=== PATIENT | female | born 1945 | race Caucasian/White ===

== ENCOUNTER 2017-05-11 23:03 | Day surgery (SDC) | payer BC ==
--- NOTE | 2017-05-11 23:06 | EDM.PDOC ---
ED HPI GENERAL MEDICAL PROBLEM - General Stated Complaint: PAIN RT SHOULDER Time Seen by Provider: 05/11/17 23:05 Source of Information: Reports: Patient - History of Present Illness INITIAL COMMENTS - FREE TEXT/NARRATIVE: HISTORY AND PHYSICAL: History of present illness: Right shoulder pain after fall 6 out of 10 nonradiating patient fell down stairs feet fist approx 6 steps, denies head injury or LOC no f/n/v/c/s/cp/sob/allred/d/palp DM /htn Review of systems: As per history of present illness and below otherwise all systems reviewed and negative. Past medical history: As per history of present illness and as reviewed below otherwise noncontributory. Surgical history: As per history of present illness and as reviewed below otherwise noncontributory. Social history: No reported history of drug or alcohol abuse. Family history: As per history of present illness and as reviewed below otherwise noncontributory. Physical exam: HEENT: Atraumatic, normocephalic, pupils reactive, negative for conjunctival pallor or scleral icterus, mucous membranes moist, throat clear, neck supple, nontender, trachea midline. Lungs: Clear to auscultation, breath sounds equal bilaterally, chest nontender. Heart: S1S2, regular, negative for clicks, rubs, or JVD. Abdomen: Soft, nondistended, nontender. Negative for masses or hepatosplenomegaly. Negative for costovertebral tenderness. Pelvis: Stable nontender. Genitourinary: Deferred. Rectal: Deferred. Extremities: Atraumatic, negative for cords or calf pain. Neurovascular unremarkable. Neuro: Awake, alert, oriented. Cranial nerves II through XII unremarkable. Cerebellum unremarkable. Motor and sensory unremarkable throughout. Exam nonfocal. Diagnostics: []Shoulder 3 views chest 1 v lab as below ekg Therapeutics: []ms 2 mg IV Impression: []Right shoulder pain comminuted /impacted Fx right humoral head with dislocation further management per dr cori mohr Definitive disposition and diagnosis as appropriate pending reevaluation and review of above. Right Shoulder Pain Score (Numeric/FACES): 8 - Related Data Allergies Allergy/AdvReac Type Severity Reaction Status Date / Time No Known Allergies Allergy Verified 05/11/17 23:11 Home Meds: Home Meds Aspirin 81 mg PO BRK 05/12/17 [History] Levothyroxine Sodium [Synthroid] 0 mcg PO 05/12/17 [History] Ramipril [Altace] 0 mg PO DAILY 05/12/17 [History] SitaGLIPtin [Januvia] 0 mg PO 05/12/17 [History] Venlafaxine [Effexor] 0 mg PO 05/12/17 [History] metFORMIN HCl [Metformin HCl] 0 mg PO 05/12/17 [History] ED ROS GENERAL - Review of Systems Review Of Systems: ROS reveals no pertinent complaints other than HPI. ED EXAM, GENERAL - Physical Exam Exam: See Below Course - Vital Signs Last Recorded V/S: Last Vital Signs Temp 36.2 C 05/11/17 23:11 Pulse 78 05/11/17 23:11 Resp 20 05/11/17 23:11 BP 137/65 05/11/17 23:11 Pulse Ox 95 05/11/17 23:11 - Orders/Labs/Meds Orders: Active Orders 24 hr Category Date Time Status EKG Documentation Completion [RC] STAT Care 05/12/17 00:05 Ordered Chest 1V Frontal [CR] Stat Exams 05/12/17 00:05 Ordered Shoulder Comp Rt [CR] Stat Exams 05/11/17 23:05 Taken CBC WITH AUTO DIFF [HEME] Stat Lab 05/12/17 00:03 Ordered COMPREHENSIVE METABOLIC PN,CMP [CHEM] Stat Lab 05/12/17 00:03 Ordered INR,PT,PROTHROMBIN TIME [COAG] Stat Lab 05/12/17 00:03 Ordered UA W/MICROSCOPIC [URIN] Stat Lab 05/12/17 00:03 Uncollected Meds: Medications Discontinued Medications Generic Name Dose Route Start Last Admin Trade Name Esther PRN Reason Stop Dose Admin Morphine Sulfate 2 mg 05/11/17 23:55 Morphine IV 05/11/17 23:56 ONETIME ONE Departure - Departure Time of Disposition: 00:12 Disposition: Still A Patient 30 Condition: Fair Clinical Impression: Fracture, Shoulder dislocation - Discharge Information - My Orders Last 24 Hours: My Active Orders 05/11/17 23:05 Shoulder Comp Rt [CR] Stat 05/12/17 00:03 CBC WITH AUTO DIFF [HEME] Stat COMPREHENSIVE METABOLIC PN,CMP [CHEM] Stat INR,PT,PROTHROMBIN TIME [COAG] Stat UA W/MICROSCOPIC [URIN] Stat 05/12/17 00:05 EKG Documentation Completion [RC] STAT Chest 1V Frontal [CR] Stat - Assessment/Plan Last 24 Hours: My Active Orders 05/11/17 23:05 Shoulder Comp Rt [CR] Stat 05/12/17 00:03 CBC WITH AUTO DIFF [HEME] Stat COMPREHENSIVE METABOLIC PN,CMP [CHEM] Stat INR,PT,PROTHROMBIN TIME [COAG] Stat UA W/MICROSCOPIC [URIN] Stat 05/12/17 00:05 EKG Documentation Completion [RC] STAT Chest 1V Frontal [CR] Stat
[2017-05-11] MEDS ORDERED: Morphine 10 MG/ML Syringe IV ONE (23:55)
[2017-05-12] MEDS ORDERED: Ondansetron 4 MG/2 ML SDV ONE (00:17)
[2017-05-12] MEDS ORDERED: Ondansetron 4 MG/2 ML SDV IVPUSH ONE (00:17)
--- NOTE | 2017-05-12 00:41 | PCM.HP ---
H&P History of Present Illness - General Date of Service: 05/12/17 Source of Information: Patient, Family History Limitations: Reports: No Limitations - History of Present Illness Initial Comments - Free Text/Narative: 72 y/o RHD female who fell down some stairs earlier tonight. Complains of pain in R shoulder. Denies other injury or LOC. No previous h/o R shoulder pain. Denies distal paralysis or paresthesias. Has a h/o previous L reverse TSA. Onset of Symptoms: Reports: Today Duration of Symptoms: Reports: Constant Location: Reports: Upper Extremity, Right Quality: Reports: Pressure, Sharp Severity: Moderate Improves with: Reports: Immobilization Worsens with: Reports: Movement Context: Reports: Trauma Associated Symptoms: Reports: No Other Symptoms Right Shoulder Pain Score (Numeric/FACES): 10 - Related Data Allergies/Adverse Reactions: Allergies Allergy/AdvReac Type Severity Reaction Status Date / Time No Known Allergies Allergy Verified 05/11/17 23:11 Home Medications: Home Meds Aspirin 81 mg PO BRK 05/12/17 [History] Levothyroxine Sodium [Synthroid] 0 mcg PO 05/12/17 [History] Ramipril [Altace] 0 mg PO DAILY 05/12/17 [History] SitaGLIPtin [Januvia] 0 mg PO 05/12/17 [History] Venlafaxine [Effexor] 0 mg PO 05/12/17 [History] metFORMIN HCl [Metformin HCl] 0 mg PO 05/12/17 [History] Past Medical History HEENT History: Reports: Impaired Vision 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 History: Reports: COPD 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: Psychiatric History: Reports: Depression Endocrine/Metabolic History: Reports: Diabetes, Type II, Hyperthyroidism - Infectious Disease History Infectious Disease History: Reports: Chicken Pox - Past Surgical History HEENT Surgical History: Reports: Tonsillectomy Female Surgical History: Reports: Hysterectomy Endocrine Surgical History: Reports: Thyroidectomy Musculoskeletal Surgical History: Reports: Knee Replacement, Shoulder Surgery Social & Family History - Family History Endocrine/Metabolic: Reports: Diabetes, type II Oncologic: Reports: Prostate - Tobacco Use Smoking Status *Q: Former Smoker Tobacco Use Within Last Twelve Months: Other (See Below) (chews nicorette gum x 7 years) Used Tobacco, but Quit: Yes Month Tobacco Last Used: quit several mos ago - Caffeine Use Caffeine Use: Reports: Coffee - Recreational Drug Use Recreational Drug Use: No H&P Review of Systems - Review of Systems: Review Of Systems: See Below General: Reports: No Symptoms HEENT: Reports: No Symptoms Pulmonary: Reports: No Symptoms Cardiovascular: Reports: No Symptoms Gastrointestinal: Reports: No Symptoms Genitourinary: Reports: No Symptoms Musculoskeletal: Reports: Joint Pain Skin: Reports: No Symptoms Psychiatric: Reports: No Symptoms Neurological: Reports: No Symptoms Hematologic/Lymphatic: Reports: No Symptoms Immunologic: Reports: No Symptoms Exam - Exam Exam: See Below - Vital Signs Vital Signs: Last Vital Signs Temp 97.5 F 05/12/17 00:32 Pulse 80 05/12/17 00:32 Resp 18 05/12/17 00:32 BP 136/63 05/12/17 00:32 Pulse Ox 94 L 05/12/17 00:32 Weight: 117.934 kg - Exam General: Alert, Oriented, 4 HEENT: Conjunctiva Clear, Hearing Intact, Nares Patent, Pupils Reactive Neck: Supple, Trachea Midline, 2 Lungs: Normal Respiratory Effort Cardiovascular: Regular Rate Abdomen: Soft (Female) Exam: Deferred Rectal (Female) Exam: Deferred Psychiatric: Alert, Normal Affect, Normal Mood Physical Exam Comments:: Exam of RUE shows no obvious deformity other than mild loss of deltoid contour. TTP over proximal humerus. No TTP over elbow/wrist. AIN/PIN/uln/deltoid motor intact. Rad/uln/med/deltoid sensation intact. Rad pulse 2 +. - Patient Data Imaging Impressions Last 24 hrs: XR R shoulder shows R shoulder anterior fracture dislocation. *Q Meaningful Use (ADM) - VTE *Q VTE Criteria *Q: - Stroke *Q Stroke Criteria *Q: - AMI *Q AMI Criteria *Q: - Problem List (1) Fracture of proximal end of right humerus SNOMED Code(s): 384490692 ICD Code: S42.201A - UNSP FRACTURE OF UPPER END OF RIGHT HUMERUS, INIT Status: Acute Current Visit: Yes Qualifiers: Encounter type: initial encounter Fracture type: closed Fracture alignment: displaced (2) Shoulder dislocation SNOMED Code(s): 524397101 ICD Code: S43.006A - UNSP DISLOCATION OF UNSPECIFIED SHOULDER JOINT, INIT ENCNTR Status: Acute Current Visit: Yes Qualifiers: Encounter type: initial encounter Laterality: right Qualified Code(s): S43.004A - Unspecified dislocation of right shoulder joint, initial encounter Problem List Initiated/Reviewed/Updated: Yes Orders Last 24hrs: Active Orders 24 hr Category Date Time Status EKG Documentation Completion [RC] STAT Care 05/12/17 00:05 Active Chest 1V Frontal [CR] Stat Exams 05/12/17 00:05 Ordered Shoulder Comp Rt [CR] Stat Exams 05/11/17 23:05 Taken CBC WITH AUTO DIFF [HEME] Stat Lab 05/12/17 00:05 Received COMPREHENSIVE METABOLIC PN,CMP [CHEM] Stat Lab 05/12/17 00:05 Received INR,PT,PROTHROMBIN TIME [COAG] Stat Lab 05/12/17 00:05 Received UA W/MICROSCOPIC [URIN] Stat Lab 05/12/17 00:03 Uncollected Assessment/Plan Comment:: 1. sling prn for comfort 2. morphine given for pain management 3. recommend CR of R shoulder fx/jennifer--Risks of procedure d/w patient which include, but are not limited to, n/v injury, fracture displacement, need for further surgery, AVN, and anesthetic complications. Patient agrees to proceed. 4. D/w patient that she may need further open treatment of her fracture, depending on how alignment is after reduction. We will plan on discussing this more tomorrow after the reduction. 5. Will admit overnight for pain management and n/v observation
--- NOTE | 2017-05-12 00:48 | PCM.OPNOTE ---
- General Post-Op/Procedure Note Date of Surgery/Procedure: 05/12/17 Operative Procedure(s): CR R shoulder fracture/dislocation Post-Op Diagnosis: R shoulder dislocation. R proximal humerus fracture, displaced Anesthesia Technique: General ET tube Primary Surgeon: Anne Marie VERA in mLs: 0 Condition: Good Free Text/Narrative:: #[id number]
[2017-05-12 00:49] LABS: CHLORIDE,CL 103 mmol/L (98-110); SODIUM,NA 139 mmol/L (136-146)
[2017-05-12] MEDS ORDERED: Rocuronium 10 MG/ML 10 ML Syringe ONE (00:51)
[2017-05-12] MEDS ORDERED: Succinylcholine/Normal Saline 200 MG/10 ML Syringe ONE (00:51)
[2017-05-12] MEDS ORDERED: Ondansetron 4 MG/2 ML SDV IVPUSH PRN (00:51)
[2017-05-12] MEDS ORDERED: Propofol 200 MG/20 ML SDV ONE (00:52)
[2017-05-12] MEDS ORDERED: fentaNYL 100 MCG/2 ML SDV ONE ×2 (00:52→01:30)
[2017-05-12] MEDS ORDERED: Midazolam 1 MG/ML 2 ML SDV ONE (00:52)
--- NOTE | 2017-05-12 01:38 | PCM.PREANE ---
Preanesthetic Assessment - Anesthesia/Transfusion/Family Hx Anesthesia History: Prior Anesthesia Without Reaction Family History of Anesthesia Reaction: No - Review of Systems Other: Reports: None - Physical Assessment NPO Status Date: 05/11/17 NPO Status Time: 20:00 O2 Sat by Pulse Oximetry: 94 Respiratory Rate: 18 Vital Signs: Last Vital Signs Temp 36.4 C 05/12/17 00:32 Pulse 80 05/12/17 00:32 Resp 18 05/12/17 00:32 BP 136/63 05/12/17 00:32 Pulse Ox 94 L 05/12/17 00:32 Height: 5 ft 9 in Weight: 117.934 kg ASA Class: 3E Mental Status: Alert & Oriented x3 Airway Class: Mallampati = 2 Dentition: Reports: Normal Dentition Thyro-Mental Finger Breadths: 3 Mouth Opening Finger Breadths: 3 ROM/Head Extension: Full - Lab Values: Laboratory Last Values WBC 19.43 K/uL (4.0-11.0) H 05/12/17 00:05 RBC 4.37 M/uL (4.30-5.90) 05/12/17 00:05 Hgb 12.5 g/dL (12.0-16.0) 05/12/17 00:05 Hct 38.8 % (36.0-46.0) 05/12/17 00:05 MCV 88.8 fL (80.0-98.0) 05/12/17 00:05 MCH 28.6 pg (27.0-32.0) 05/12/17 00:05 MCHC 32.2 g/dL (31.0-37.0) 05/12/17 00:05 RDW Std Deviation 51.9 fl (28.0-62.0) 05/12/17 00:05 RDW Coeff of [place] 16 % (11.0-15.0) H 05/12/17 00:05 Plt Count 418 K/uL (150-400) H 05/12/17 00:05 MPV 9.30 fL (7.40-12.00) 05/12/17 00:05 Add Manual Diff YES 05/12/17 00:05 Neutrophils % (Manual) 74 % (48.0-80.0) 05/12/17 00:05 Band Neutrophils % 6 % 05/12/17 00:05 Lymphocytes % (Manual) 12 % (16.0-40.0) L 05/12/17 00:05 Monocytes % (Manual) 7 % (0.0-15.0) 05/12/17 00:05 Basophils % (Manual) 1 % (0.0-1.5) 05/12/17 00:05 Nucleated RBC % 0.0 /100WBC 05/12/17 00:05 Absolute Seg Neuts 14.4 05/12/17 00:05 Band Neutrophils # 1.2 05/12/17 00:05 Lymphocytes # (Manual) 2.3 05/12/17 00:05 Monocytes # (Manual) 1.4 05/12/17 00:05 Basophils # (Manual) 0 05/12/17 00:05 Nucleated RBCs # 0 K/uL 05/12/17 00:05 INR 0.97 (0.86-1.11) 05/12/17 00:05 Sodium 139 mmol/L (136-146) 05/12/17 00:05 Potassium 4.1 mmol/L (3.5-5.1) 05/12/17 00:05 Chloride 103 mmol/L (98-110) 05/12/17 00:05 Carbon Dioxide 20 mmol/L (21-31) L 05/12/17 00:05 BUN 18 mg/dL (6.0-23.0) 05/12/17 00:05 Creatinine 0.9 mg/dL (0.6-1.5) 05/12/17 00:05 Est Cr Clr Drug Dosing 60.79 mL/min 05/12/17 00:05 Estimated GFR (MDRD) > 60.0 ml/min 05/12/17 00:05 Glucose 233 mg/dL (60-110) H 05/12/17 00:05 Calcium 9.5 mg/dL (8.8-10.8) 05/12/17 00:05 Total Bilirubin 0.3 mg/dL (0.1-1.5) 05/12/17 00:05 AST 49 IU/L (5-40) H 05/12/17 00:05 ALT 41 IU/L (8-54) 05/12/17 00:05 Alkaline Phosphatase 91 (40-150) 05/12/17 00:05 Total Protein 7.2 g/dL (6.0-8.0) 05/12/17 00:05 Albumin 3.8 g/dL (3.4-4.8) 05/12/17 00:05 Globulin 3.4 g/dL (2.0-3.5) 05/12/17 00:05 Albumin/Globulin Ratio 1.1 (1.3-2.8) L 05/12/17 00:05 Urine Color YELLOW 05/12/17 01:11 Urine Appearance SLT CLOUDY 05/12/17 01:11 Urine pH 6.0 (5.0-8.0) 05/12/17 01:11 Ur Specific [place] >= 1.030 (1.001-1.035) 05/12/17 01:11 Urine Protein 30 mg/dL (NEGATIVE) 05/12/17 01:11 Urine Glucose (UA) NEGATIVE mg/dL (NEGATIVE) 05/12/17 01:11 Urine Ketones TRACE mg/dL (NEGATIVE) H 05/12/17 01:11 Urine Occult Blood SMALL (NEGATIVE) H 05/12/17 01:11 Urine Nitrite POSITIVE (NEGATIVE) H 05/12/17 01:11 Urine Bilirubin NEGATIVE (NEGATIVE) 05/12/17 01:11 Urine Urobilinogen 0.2 EU/dL (<2.0) 05/12/17 01:11 Ur Leukocyte Esterase SMALL (NEGATIVE) 05/12/17 01:11 Urine RBC 0-2 (0-2/HPF) 05/12/17 01:11 Urine WBC 50-60 (0-5/HPF) 05/12/17 01:11 Ur Epithelial Cells FEW (NONE-FEW) 05/12/17 01:11 Urine Bacteria 2+ (NEGATIVE) H 05/12/17 01:11 - Allergies Allergies/Adverse Reactions: Allergies Allergy/AdvReac Type Severity Reaction Status Date / Time No Known Allergies Allergy Verified 05/11/17 23:11 - Acknowledgements Anesthesia Type Planned: General Anesthesia Pt an Appropriate Candidate for the Planned Anesthesia: Yes Alternatives and Risks of Anesthesia Discussed w Pt/Guardian: Yes Pt/Guardian Understands and Agrees with Anesthesia Plan: Yes PreAnesthesia Questionnaire HEENT History: Reports: Impaired Vision Cardiovascular History: Reports: Hypertension 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: Psychiatric History: Reports: Depression Endocrine/Metabolic History: Reports: Diabetes, Type II, Hyperthyroidism - Infectious Disease History Infectious Disease History: Reports: Chicken Pox - Past Surgical History HEENT Surgical History: Reports: Oral Surgery, Tonsillectomy Female Surgical History: Reports: Section, Hysterectomy Endocrine Surgical History: Reports: Thyroidectomy Musculoskeletal Surgical History: Reports: Knee Replacement, Shoulder Surgery - SUBSTANCE USE Smoking Status *Q: Former Smoker Tobacco Use Within Last Twelve Months: Other (See Below) (chews nicorette gum x 7 years) Recreational Drug Use History: No - HOME MEDS Home Medications: Home Meds Aspirin 81 mg PO BRK 05/12/17 [History] Levothyroxine Sodium [Synthroid] 0 mcg PO 05/12/17 [History] Ramipril [Altace] 0 mg PO DAILY 05/12/17 [History] SitaGLIPtin [Januvia] 0 mg PO 05/12/17 [History] Venlafaxine [Effexor] 0 mg PO 05/12/17 [History] metFORMIN HCl [Metformin HCl] 0 mg PO 05/12/17 [History] - CURRENT (IN HOUSE) MEDS Current Meds: Current Medications Hydrocodone Bitart/Acetaminophen ([place] 325-5 Mg) 1 - 2 tab PO Q4H PRN PRN Reason: Pain Aspirin (Aspirin) 81 mg PO BRK EVITA Lactated Ringer's (Ringers, Lactated) 1,000 mls @ 125 mls/hr IV ASDIRECTED EVITA Morphine Sulfate (Morphine) 1 - 3 mg IVPUSH Q3H PRN PRN Reason: Pain Ondansetron HCl (Zofran) 4 mg IVPUSH Q6HR PRN PRN Reason: NAUSEA/VOMITING Discontinued Medications Fentanyl (Sublimaze) Confirm Administered Dose 100 mcg .ROUTE .STK-MED ONE Stop: 05/12/17 00:53 Fentanyl (Sublimaze) Confirm Administered Dose 100 mcg .ROUTE .STK-MED ONE Stop: 05/12/17 01:31 Midazolam HCl (Versed 1 Mg/Ml) Confirm Administered Dose 2 mg .ROUTE .STK-MED ONE Stop: 05/12/17 00:53 Morphine Sulfate (Morphine) 2 mg IV ONETIME ONE Stop: 05/11/17 23:56 Last Admin: 05/12/17 00:24 Dose: 2 mg Ondansetron HCl (Zofran) 8 mg IVPUSH ONETIME ONE Stop: 05/12/17 00:18 Last Admin: 05/12/17 00:22 Dose: 8 mg Ondansetron HCl (Zofran) Confirm Administered Dose 4 mg .ROUTE .STK-MED ONE Stop: 05/12/17 00:18 Last Admin: 05/12/17 00:24 Dose: Not Given Propofol (Diprivan 20 Ml) Confirm Administered Dose 200 mg .ROUTE .STK-MED ONE Stop: 05/12/17 00:53 Rocuronium [place] (Zemuron) Confirm Administered Dose 100 mg .ROUTE .STK-MED ONE Stop: 05/12/17 00:52 Succinylcholine Chloride (Succinylcholine In Ns Pf) Confirm Administered Dose 200 mg .ROUTE .STK-MED ONE Stop: 05/12/17 00:52
[2017-05-12] MEDS ORDERED: fentaNYL 100 MCG/2 ML SDV IVPUSH PRN (02:26)
--- NOTE | 2017-05-12 02:37 | PCM.POSTAN ---
POST ANESTHESIA ASSESSMENT - MENTAL STATUS Mental Status: alert, oriented - RESPIRATORY Respiratory Status: respiratory rate WNL, airway patent, O2 saturation stable, supplemental oxygen - CARDIOVASCULAR CV Status: pulse rate WNL, blood pressure stable - GASTROINTESTINAL GI Status: no symptoms - PAIN Pain Score: 4 - POST OP HYDRATION Hydration Status: adequate & stable
[2017-05-12] MEDS: Lactated Ringers 1,000 ML IV SCH ×2 (03:09→11:48)
--- NOTE | 2017-05-12 03:13 | OR ---
SURGEON: Anne Marie Amin MD DATE OF PROCEDURE: 05/12/2017 PREOPERATIVE DIAGNOSIS: Right shoulder fracture/dislocation. POSTOPERATIVE DIAGNOSIS: Right shoulder fracture/dislocation. PROCEDURE: Closed reduction, right shoulder fracture/dislocation. . VETERINARY DENTIST: None. ANESTHESIA: General. ESTIMATED BLOOD LOSS: 0 mL. TOURNIQUET TIME: 0 minutes. COMPLICATIONS: None. DVT PROPHYLAXIS: Not indicated. IMPLANTS USED: None. BRIEF HISTORY: Litzy is a 72-year-old [id number] female who sustained a fall down some steps earlier this evening. She complained of an immediate pain in her right shoulder. She was seen in the emergency room. She was found to have a comminuted fracture of the proximal humerus along with a dislocation of the right glenohumeral joint. At that time, I recommended closed reduction. The risks and goals of procedure were discussed with the patient and were documented preoperatively. She agreed to proceed. DESCRIPTION OF PROCEDURE: The patient was properly identified and brought to the operating room. She was kept on the operating room cart. General anesthesia was administered. After adequate anesthesia was obtained, a time-out was performed to ensure correct site and procedure. Preoperative antibiotics were not given. The surgical site had been marked preoperatively. A sheet was placed around the torso to provide countertraction. The patient's arm and upper extremity was quite large and it was difficult to palpate her bony structures. Axial traction was placed and I attempted a closed reduction. Initial x-rays obtained showed there to be considerable comminution of the humeral head. The axillary view showed the humeral head to be in place along the glenoid, however, there was quite a bit of rotation of the AP view. The shoulder again repositioned with gentle traction and a new x-ray with the arm kept in neutral position was obtained. This showed reduction of the fracture in the AP plane. The patient was then placed in a shoulder immobilizer. She was awakened from her anesthetic and transferred back to the operating room cart. The patient tolerated the procedure well. Postoperatively, we will plan on obtaining a CT scan of the right shoulder to evaluate the fracture fragments. She will continue with the shoulder immobilizer. AUBREY / ARABELLA /[id number]
[2017-05-12] MEDS: Morphine 4 MG/ML Syringe IVPUSH PRN ×3 (03:22→11:46)
[2017-05-12] MEDS: Aspirin 81 MG Tab.Chew PO SCH ×2 (03:23→08:58)
[2017-05-12] MEDS: Acetaminophen/HYDROcodone 325-5 MG Tab PO PRN ×3 (04:30→13:25)
[2017-05-12] MEDS ORDERED: metFORMIN 500 MG Tab PO SCH (09:00)
[2017-05-12] MEDS ORDERED: Venlafaxine 75 MG Cap.ER PO SCH (09:00)
[2017-05-12] MEDS ORDERED: Levofloxacin 500 MG Tab PO SCH (09:15)
[2017-05-12] MEDS ORDERED: SitaGLIPtin 25 MG Tab PO SCH (09:30)
--- NOTE | 2017-05-12 10:06 | CR ---
EXAMINATION: Right shoulder HISTORY: Closed reduction COMPARISON: 05/11/2017 TECHNIQUE: 3 views FINDINGS/IMPRESSION: Again noted is a comminuted proximal right humerus fracture with intra-articula r extension. Glenohumeral alignment appears normal with successful reduction. Bone mineralization ot herwise appears normal. Partially visualized endotracheal tube noted.
--- NOTE | 2017-05-12 11:07 | CR ---
EXAMINATION: Right ankle HISTORY: Swelling COMPARISON: None TECHNIQUE: 3 views FINDINGS: There is a small triangular ossific density noted distal to the medial malleolus. Otherwis e no is no acute osseous abnormality, dislocation, or fracture. There is likely an old traumatic def ormity of the distal fibula with moderate joint space narrowing along the lateral aspect of the tibi otalar joint. Mild generalized soft tissue swelling noted surrounding the right ankle. IMPRESSION: 1. Joint space narrowing within the tibiotalar joint laterally. 2. Small ossific density inferior to the malleolus, likely an age indeterminate avulsion type injury . 3. Likely old healed fracture deformity of the distal fibula.
--- NOTE | 2017-05-12 12:43 | CT ---
EXAMINATION: CT right shoulder HISTORY: Fracture COMPARISON: Radiographs from the same day TECHNIQUE: Axial CT images obtained through the right shoulder without contrast. Coronal and sagitta l reconstructions obtained. FINDINGS: There is a markedly comminuted mildly displaced intra-articular fracture of the right prox imal humerus with a greater tuberosity avulsion component. There is approximately 11 mm of fragment separation along the medial articular surface. There is distraction of the greater tuberosity with a pproximately 9 mm of superior migration. The glenohumeral joint is reduced however severe joint spac e narrowing is noted. There is a small joint effusion. The remaining osseous structures appear intac t however mildly osteopenic. Mild acromioclavicular osteoarthritic changes are noted. Emphysematous changes are noted within the lungs. IMPRESSION: 1. Comminuted nondisplaced intra-articular proximal right humerus fracture.
--- NOTE | 2017-05-12 13:40 | CR ---
EXAM DATE: 05/12/17 PATIENT'S AGE: 72 Patient: JACQUELIN ROSARIO Facility: [place], [place] Site . Site : 1945 Study: XRay Shoulder Right [id number]/25/2017 11:48:35 PM Ordering Physician: Doctor Mccartney Final Report: INDICATION: PT STATES FELL TODAY, PAIN IN RIGHT SHOULDER TECHNIQUE: Two views of the right shoulder COMPARISON: None FINDINGS/IMPRESSION: Bones: Comminuted impacted right humeral head fracture. The glenohumeral joint is dislocated. Remote healed 5th right posterolateral rib fracture. Soft tissues: Unremarkable. Dictated by Darryl Montesinos MD @ 05/11/2017 11:53:27 PM Dictated by: Darryl Montesinos MD @ 05/11/2017 23:53:41 (Electronic Signature) Report Signed by Proxy. [facility]OSPITALYes[facility]
--- NOTE | 2017-05-12 13:41 | CR ---
EXAM DATE: 05/12/17 PATIENT'S AGE: 72 Patient: JACQUELIN ROSARIO Facility: [place], [place] Site . Site : 1945 Study: XRay Chest [id number]/26/2017 12:45:23 AM Ordering Physician: Dharmesh Young Final Report: INDICATION: PAIN. PRE-OP. RT SHOULDER FX. TECHNIQUE: Chest 1 view COMPARISON: None FINDINGS: Cardiovascular and mediastinum: Heart size and vasculature are normal in caliber and appearance. Mediastinum is within normal limits. Lungs and pleural space: No focal consolidation. Calcified granuloma within the right upper lobe. No sign of pleural effusion. No pneumothorax. Bones and soft tissues: Comminuted impacted right humeral head fracture with apparent dislocation of the glenohumeral joint. Partially imaged left shoulder arthroplasty. . IMPRESSION: No acute cardiopulmonary disease. Dictated by Darryl Montesinos MD @ 05/12/2017 12:57:24 AM Dictated by: Darryl Montesinos MD @ 05/12/2017 00:57:35 (Electronic Signature) Report Signed by Proxy. [facility]
[2017-05-12 14:03] VITALS: BP 132/63
--- NOTE | 2017-05-12 14:37 | PCM.SURGPN ---
- General Info Date of Service: 05/12/17 POD#: 1 Functional Status: Reports: pain controlled - Review of Systems General: Reports: No Symptoms HEENT: Reports: no symptoms Pulmonary: Reports: no symptoms Cardiovascular: Reports: No Symptoms Gastrointestinal: Reports: No symptoms Genitourinary: Reports: no symptoms Musculoskeletal: Reports: joint pain Skin: Reports: no symptoms Neurological: Reports: No Symptoms Systems Review Comment:: Patient sitting at edge of bed. Pain controlled. Denies paralysis, paresthesias. States ankle pain is minimal. - Patient Data Vitals - most recent: Last Vital Signs Temp 97.5 F 05/12/17 12:00 Pulse 77 05/12/17 12:00 Resp 16 05/12/17 12:00 BP 132/63 05/12/17 12:00 Pulse Ox 96 05/12/17 12:00 Weight - most recent: 117.934 kg I&O - last 24 hours: Intake & Output 05/11/17 05/12/17 05/12/17 22:59 06:59 14:59 Intake Total 650 Output Total 0 Balance 650 Lab Results last 24 hrs: Laboratory Results - last 24 hr 05/12/17 05/12/17 05/12/17 Range/Units 00:05 00:05 00:05 WBC 19.43 H (4.0-11.0) K/uL RBC 4.37 (4.30-5.90) M/uL Hgb 12.5 (12.0-16.0) g/dL Hct 38.8 (36.0-46.0) % MCV 88.8 (80.0-98.0) fL MCH 28.6 (27.0-32.0) pg MCHC 32.2 (31.0-37.0) g/dL RDW Std Deviation 51.9 (28.0-62.0) fl RDW Coeff of [place] 16 H (11.0-15.0) % Plt Count 418 H (150-400) K/uL MPV 9.30 (7.40-12.00) fL Add Manual Diff YES Neutrophils % (Manual) 74 (48.0-80.0) % Band Neutrophils % 6 % Lymphocytes % (Manual) 12 L (16.0-40.0) % Monocytes % (Manual) 7 (0.0-15.0) % Basophils % (Manual) 1 (0.0-1.5) % Nucleated RBC % 0.0 /100WBC Absolute Seg Neuts 14.4 Band Neutrophils # 1.2 Lymphocytes # (Manual) 2.3 Monocytes # (Manual) 1.4 Basophils # (Manual) 0 Nucleated RBCs # 0 K/uL INR 0.97 (0.86-1.11) Sodium 139 (136-146) mmol/L Potassium 4.1 (3.5-5.1) mmol/L Chloride 103 (98-110) mmol/L Carbon Dioxide 20 L (21-31) mmol/L BUN 18 (6.0-23.0) mg/dL Creatinine 0.9 (0.6-1.5) mg/dL Est Cr Clr Drug Dosing 60.79 mL/min Estimated GFR (MDRD) > 60.0 ml/min Glucose 233 H (60-110) mg/dL POC Glucose (60-110) mg/dL Calcium 9.5 (8.8-10.8) mg/dL Total Bilirubin 0.3 (0.1-1.5) mg/dL AST 49 H (5-40) IU/L ALT 41 (8-54) IU/L Alkaline Phosphatase 91 (40-150) Total Protein 7.2 (6.0-8.0) g/dL Albumin 3.8 (3.4-4.8) g/dL Globulin 3.4 (2.0-3.5) g/dL Albumin/Globulin Ratio 1.1 L (1.3-2.8) Urine Color Urine Appearance Urine pH (5.0-8.0) Ur Specific [place] (1.001-1.035) Urine Protein (NEGATIVE) mg/dL Urine Glucose (UA) (NEGATIVE) mg/dL Urine Ketones (NEGATIVE) mg/dL Urine Occult Blood (NEGATIVE) Urine Nitrite (NEGATIVE) Urine Bilirubin (NEGATIVE) Urine Urobilinogen (<2.0) EU/dL Ur Leukocyte Esterase (NEGATIVE) Urine RBC (0-2/HPF) Urine WBC (0-5/HPF) Ur Epithelial Cells (NONE-FEW) Urine Bacteria (NEGATIVE) 05/12/17 05/12/17 05/12/17 Range/Units 01:11 06:09 11:53 WBC (4.0-11.0) K/uL RBC (4.30-5.90) M/uL Hgb (12.0-16.0) g/dL Hct (36.0-46.0) % MCV (80.0-98.0) fL MCH (27.0-32.0) pg MCHC (31.0-37.0) g/dL RDW Std Deviation (28.0-62.0) fl RDW Coeff of [place] (11.0-15.0) % Plt Count (150-400) K/uL MPV (7.40-12.00) fL Add Manual Diff Neutrophils % (Manual) (48.0-80.0) % Band Neutrophils % % Lymphocytes % (Manual) (16.0-40.0) % Monocytes % (Manual) (0.0-15.0) % Basophils % (Manual) (0.0-1.5) % Nucleated RBC % /100WBC Absolute Seg Neuts Band Neutrophils # Lymphocytes # (Manual) Monocytes # (Manual) Basophils # (Manual) Nucleated RBCs # K/uL INR (0.86-1.11) Sodium (136-146) mmol/L Potassium (3.5-5.1) mmol/L Chloride (98-110) mmol/L Carbon Dioxide (21-31) mmol/L BUN (6.0-23.0) mg/dL Creatinine (0.6-1.5) mg/dL Est Cr Clr Drug Dosing mL/min Estimated GFR (MDRD) ml/min Glucose (60-110) mg/dL POC Glucose 121 H 138 H (60-110) mg/dL Calcium (8.8-10.8) mg/dL Total Bilirubin (0.1-1.5) mg/dL AST (5-40) IU/L ALT (8-54) IU/L Alkaline Phosphatase (40-150) Total Protein (6.0-8.0) g/dL Albumin (3.4-4.8) g/dL Globulin (2.0-3.5) g/dL Albumin/Globulin Ratio (1.3-2.8) Urine Color YELLOW Urine Appearance SLT CLOUDY Urine pH 6.0 (5.0-8.0) Ur Specific [place] >= 1.030 (1.001-1.035) Urine Protein 30 (NEGATIVE) mg/dL Urine Glucose (UA) NEGATIVE (NEGATIVE) mg/dL Urine Ketones TRACE H (NEGATIVE) mg/dL Urine Occult Blood SMALL H (NEGATIVE) Urine Nitrite POSITIVE H (NEGATIVE) Urine Bilirubin NEGATIVE (NEGATIVE) Urine Urobilinogen 0.2 (<2.0) EU/dL Ur Leukocyte Esterase SMALL (NEGATIVE) Urine RBC 0-2 (0-2/HPF) Urine WBC 50-60 (0-5/HPF) Ur Epithelial Cells FEW (NONE-FEW) Urine Bacteria 2+ H (NEGATIVE) Med Orders - Current: Current Medications Hydrocodone Bitart/Acetaminophen ([place] 325-5 Mg) 1 - 2 tab PO Q4H PRN PRN Reason: Pain Last Admin: 05/12/17 13:25 Dose: 2 tab Aspirin (Aspirin) 81 mg PO BRK [facility] Last Admin: 05/12/17 08:58 Dose: 81 mg Fentanyl (Sublimaze) 50 mcg IVPUSH SEECOMMENT PRN PRN Reason: Pain (moderate 4-6) Lactated Ringer's (Ringers, Lactated) 1,000 mls @ 125 mls/hr IV ASDIRECTED [facility] Last Admin: 05/12/17 11:48 Dose: 125 mls/hr Levofloxacin (Levaquin) 500 mg PO Q24H [facility] Last Admin: 05/12/17 09:50 Dose: 500 mg Levothyroxine Sodium (Levothyroxine) 125 mcg PO ACBREAKFAST [facility] Metformin HCl (Glucophage) 1,000 mg PO BID [facility] Last Admin: 05/12/17 09:50 Dose: 1,000 mg Morphine Sulfate (Morphine) 1 - 3 mg IVPUSH Q3H PRN PRN Reason: Pain Last Admin: 05/12/17 11:46 Dose: 3 mg Ondansetron HCl (Zofran) 4 mg IVPUSH Q6HR PRN PRN Reason: NAUSEA/VOMITING Sitagliptin 25 Mg (Tab) 25 each PO DAILY [facility] Last Admin: 05/12/17 09:33 Dose: Not Given Ramipril (Altace) 5 mg PO BEDTIME [facility] Venlafaxine HCl (Effexor Xr) 150 mg PO DAILY [facility] Last Admin: 05/12/17 09:50 Dose: 150 mg Discontinued Medications Fentanyl (Sublimaze) Confirm Administered Dose 100 mcg .ROUTE .STK-MED ONE Stop: 05/12/17 00:53 Fentanyl (Sublimaze) Confirm Administered Dose 100 mcg .ROUTE .STK-MED ONE Stop: 05/12/17 01:31 Midazolam HCl (Versed 1 Mg/Ml) Confirm Administered Dose 2 mg .ROUTE .STK-MED ONE Stop: 05/12/17 00:53 Morphine Sulfate (Morphine) 2 mg IV ONETIME ONE Stop: 05/11/17 23:56 Last Admin: 05/12/17 00:24 Dose: 2 mg Ondansetron HCl (Zofran) 8 mg IVPUSH ONETIME ONE Stop: 05/12/17 00:18 Last Admin: 05/12/17 00:22 Dose: 8 mg Ondansetron HCl (Zofran) Confirm Administered Dose 4 mg .ROUTE .STK-MED ONE Stop: 05/12/17 00:18 Last Admin: 05/12/17 00:24 Dose: Not Given Propofol (Diprivan 20 Ml) Confirm Administered Dose 200 mg .ROUTE .STK-MED ONE Stop: 05/12/17 00:53 Rocuronium [place] (Zemuron) Confirm Administered Dose 100 mg .ROUTE .STK-MED ONE Stop: 05/12/17 00:52 Sitagliptin Phosphate (Januvia) 25 mg PO DAILY [facility] Last Admin: 05/12/17 09:33 Dose: Not Given Succinylcholine Chloride (Succinylcholine In Ns Pf) Confirm Administered Dose 200 mg .ROUTE .STK-MED ONE Stop: 05/12/17 00:52 - Exam General: alert, oriented Physical Findings Comment:: Exam of RUE shows immobilizer in place. AIN/PIN/uln motor intact. Rad/uln/med sensation intact. Rad pulse 2 +. Exam of RLE shows eccymosis and swelling over lateral aspect of ankle extending into dorsum of foot. ROM of ankle 5 DF to 20 PF. Mild TTP over ATFL and CFL ligaments laterally with mild TTP over med malleolus. AT/EHL/gastroc 5/5. Sensation intact. DP 2+. - Problem List & Annotations (1) Fracture of proximal end of right humerus SNOMED Code(s): 840005925 Code(s): S42.201A - UNSP FRACTURE OF UPPER END OF RIGHT HUMERUS, INIT Status: Acute Current Visit: Yes Qualifiers: Encounter type: initial encounter Fracture type: closed Fracture alignment: displaced (2) Shoulder dislocation SNOMED Code(s): 670646000 Code(s): S43.006A - UNSP DISLOCATION OF UNSPECIFIED SHOULDER JOINT, INIT ENCNTR Status: Acute Current Visit: Yes Qualifiers: Encounter type: initial encounter Laterality: right Qualified Code(s): S43.004A - Unspecified dislocation of right shoulder joint, initial encounter - Problem List Review Problem List Initiated/Reviewed/Updated: Yes - My Orders Last 24 Hours: Active Orders 24 hr Category Date Time Status Patient Status [ADT] Routine ADT 05/12/17 00:48 Active Blood Glucose Check, Bedside [RC] ACBED Care 05/12/17 00:49 Active EKG Documentation Completion [RC] STAT Care 05/12/17 00:05 Active Neurovascular Check [RC] Q4HR Care 05/12/17 00:49 Active Notify Provider Vital Signs [RC] ASDIRECTED Care 05/12/17 00:49 Active RT Incentive Spirometry [RC] ASDIRECTED Care 05/12/17 00:49 Active Vital Signs [RC] Q4H Care 05/12/17 00:49 Active ADA Diabetic [[place] [employer] Diet] [DIET Diet 05/12/17 Breakfast Active ] Acetaminophen/HYDROcodone [[place] 325-5 MG] Med 05/12/17 00:51 Active 1 - 2 tab PO Q4H PRN Aspirin Med 05/12/17 01:00 Active 81 mg PO BRK Lactated Ringers [Ringers, Lactated] 1,000 ml Med 05/12/17 01:00 Active IV ASDIRECTED Levofloxacin [Levaquin] Med 05/12/17 09:15 Active 500 mg PO Q24H Levothyroxine Med 05/13/17 07:30 Active 125 mcg PO ACBREAKFAST Morphine Med 05/12/17 00:51 Active 1 - 3 mg IVPUSH Q3H PRN Ondansetron [Zofran] Med 05/12/17 00:51 Active 4 mg IVPUSH Q6HR PRN Patient's Own Medication [Ptom] Med 05/12/17 09:30 Active 25 each PO DAILY Ramipril [Altace] Med 05/12/17 21:00 Active 5 mg PO BEDTIME Venlafaxine [Effexor XR] Med 05/12/17 09:00 Active 150 mg PO DAILY fentaNYL [Sublimaze] Med 05/12/17 02:26 Active 50 mcg IVPUSH SEECOMMENT PRN metFORMIN [Glucophage] Med 05/12/17 09:00 Active 1,000 mg PO BID Obtain Home Medication List [OM.PC] Routine Oth 05/12/17 00:48 Ordered Medication Orders Hydrocodone Bitart/Acetaminophen ([place] 325-5 Mg) 1 - 2 tab PO Q4H PRN PRN Reason: Pain Last Admin: 05/12/17 13:25 Dose: 2 tab Admin: 05/12/17 08:58 Dose: 2 tab Admin: 05/12/17 04:30 Dose: 2 tab Aspirin (Aspirin) 81 mg PO BRK [facility] Last Admin: 05/12/17 08:58 Dose: 81 mg Admin: 05/12/17 03:23 Dose: 81 mg Fentanyl (Sublimaze) 50 mcg IVPUSH SEECOMMENT PRN PRN Reason: Pain (moderate 4-6) Lactated Ringer's (Ringers, Lactated) 1,000 mls @ 125 mls/hr IV ASDIRECTED [facility] Last Admin: 05/12/17 11:48 Dose: 125 mls/hr Infusion: 05/12/17 11:09 Dose: 125 mls/hr Admin: 05/12/17 03:09 Dose: 125 mls/hr Levofloxacin (Levaquin) 500 mg PO Q24H [facility] Last Admin: 05/12/17 09:50 Dose: 500 mg Levothyroxine Sodium (Levothyroxine) 125 mcg PO ACBREAKFAST [facility] Metformin HCl (Glucophage) 1,000 mg PO BID [facility] Last Admin: 05/12/17 09:50 Dose: 1,000 mg Morphine Sulfate (Morphine) 1 - 3 mg IVPUSH Q3H PRN PRN Reason: Pain Last Admin: 05/12/17 11:46 Dose: 3 mg Admin: 05/12/17 06:30 Dose: 2 mg Admin: 05/12/17 03:22 Dose: 2 mg Ondansetron HCl (Zofran) 4 mg IVPUSH Q6HR PRN PRN Reason: NAUSEA/VOMITING Sitagliptin 25 Mg (Tab) 25 each PO DAILY [facility] Last Admin: 05/12/17 09:33 Dose: Ramipril (Altace) 5 mg PO BEDTIME [facility] Venlafaxine HCl (Effexor Xr) 150 mg PO DAILY [facility] Last Admin: 05/12/17 09:50 Dose: 150 mg - Plan Plan (Free Text/Narrative):: 1. conservative care for ankle. Lace up brace prn. 2. Ct of R shoulder reviewed. Shows comminuted fracture of R proximal humerus involving the humeral head articular surface. GH joint reduced. Due to the fracture pattern, I am recommending referral to an upper extremity specialist for consideration of shoulder arthroplasty. She is from the [facility] and would like to go home for definitive care, rather than be transferred somewhere in [place]. She has undergone a L reverse TSA in the past and would like to return to the surgeon who did that surgery. I will send copies of the CT and XR with her, along with any notes. She is instructed to f/u there within the next 2 weeks. She should continue her immobilizer and avoid shoulder ROM. Encouraged wrist and hand ROM. 3. plan discharge with daughter today. Will send [place] for pain control. Advised to contact us if she has any questions. Patient and daughter agree with plan.
[2017-05-13] MEDS ORDERED: Levothyroxine 125 MCG Tab PO SCH (07:30)
== END 2017-05-12 15:48 | disposition home or self-care (01) ==
LOC: MW.ED 23:03 → MW.SDS 05-12 00:40 → MW.MS 05-12 00:56 → MW.SDS 05-12 15:48
PROVIDERS: ATTEND Orthopaedic Surgery
PROC: 0PSCXZZ Reposition Right Humeral Head, External Approach (ICD-10-PCS; principal; 2017-05-12)
DX: S42.291A Other displaced fracture of upper end of right humerus, initial encounter for closed fracture (principal); W10.9XXA Fall (on) (from) unspecified stairs and steps, initial encounter; Y93.9 Activity, unspecified
CPT/HCPCS: 23675; 71010; 73030; 73200; 73610; 80053; 81001; 82962; 85025; 85610; 93005; A9270; J2250; J2270; J2405; J3010; J7120; 01620; 96374; 96375; 99284; 99285-25; J2704